=== PATIENT | male | born 1990 | race Hispanic/Latino ===

== ENCOUNTER 2017-08-31 22:59 | Emergency (ER) | payer BC ==
[2017-08-31] MEDS ORDERED: Sodium Chloride 0.9% 1,000 ML IV SCH (23:45)
--- NOTE | 2017-08-31 23:51 | ED PDOC ---
Arrival/HPI - General Chief Complaint: Abdominal Pain Time Seen by Provider: 08/31/17 23:39 Historian: Patient - History of Present Illness Narrative History of Present Illness (Text): 09/01/17 23:51 Jamie Jernigan is a 27 year old male, with no significant past medical history , who presents to the Emergency department complaining of intermittent cramping abdominal discomfort for the past couple of days. Patient notes associated diarrhea. Patient states he took Mylanta without any significant relief. Patient denies nausea, vomiting, coughing, fever, appetite changes, dysuria, back pain, shortness of breath, or any other complaints. Time/Duration: Other Symptom Onset: Gradual Symptom Course: Unchanged, Intermittent Quality: Aching Activities at Onset: Light Context: Home Past Medical History - Provider Review Nursing Documentation Reviewed: Yes - Infectious Disease Hx of Infectious Diseases: None - Psychiatric Hx Substance Use: No - Surgical History Other/Comment: lt arm sx - Anesthesia Hx Anesthesia: Yes Hx Anesthesia Reactions: No Family/Social History - Physician Review Nursing Documentation Reviewed: Yes Family/Social History: Unknown Family HX Smoking Status: Never Smoked Hx Alcohol Use: No Hx Substance Use: No Allergies/Home Meds Allergies/Adverse Reactions: Allergies No Known Allergies Allergy (Verified 08/31/17 23:26) Home Medications: Home Meds Medication Instructions Recorded Confirmed No Known Home Med 08/31/17 08/31/17 Review of Systems - Physician Review All systems were reviewed & negative as marked: Yes - Review of Systems Constitutional: Normal. absent: Fevers Eyes: Normal ENT: Normal Respiratory: Normal. absent: SOB, Cough Cardiovascular: Normal. absent: Chest Pain Gastrointestinal: Abdominal Pain, Diarrhea. absent: Nausea, Vomiting, Appetite Changes Genitourinary Male: Normal. absent: Dysuria, Urinary Output Changes Musculoskeletal: Normal. absent: Back Pain Skin: Normal Neurological: Normal. absent: Headache Endocrine: Normal Hemo/Lymphatic: Normal Psychiatric: Normal Physical Exam Vital Signs Reviewed: Yes Vital Signs Temp Pulse Resp BP Pulse Ox 09/01/17 03:27 72 16 136/75 95 09/01/17 02:39 68 15 139/83 95 08/31/17 23:30 97.8 F 77 16 144/70 94 L Temperature: Afebrile Blood Pressure: Normal Pulse: Regular Respiratory Rate: Normal Appearance: Positive for: Well-Appearing, Non-Toxic, Comfortable Pain Distress: None Mental Status: Positive for: Alert and Oriented X 3 - Systems Exam Head: Present: Atraumatic, Normocephalic Pupils: Present: PERRL Extroacular Muscles: Present: EOMI Conjunctiva: Present: Normal Mouth: Present: Moist Mucous Membranes Neck: Present: Normal Range of Motion Respiratory/Chest: Present: Clear to Auscultation, Good Air Exchange. No: Respiratory Distress, Accessory Muscle Use Cardiovascular: Present: Regular Rate and Rhythm, Normal S1, S2. No: Murmurs Abdomen: No: Tenderness, Distention, Peritoneal Signs Back: Present: Normal Inspection Upper Extremity: Present: Normal Inspection. No: Cyanosis, Edema Lower Extremity: Present: Normal Inspection. No: Edema Neurological: Present: GCS=15, CN II-XII Intact, Speech Normal Skin: Present: Warm, Dry, Normal Color. No: Rashes Psychiatric: Present: Alert, Oriented x 3, Normal Insight, Normal Concentration Medical Decision Making ED Course and Treatment: 08/31/17 23:52 Impression: 27 year old male presents to Emergency department for aching right sided abdominal pain. Plan: -- Abdomen/Pelvis CT scan --Labs --Urinalysis --IV fluids -- Reassess and disposition Progress Notes: 09/01/17 02:25 Abdomen/Pelvis CT shows: FINDINGS: Abdomen pelvis:Liver, gallbladder, spleen, pancreas, both adrenals and both kidneys are normal.Normal caliber aorta.No bowel obstruction or evidence of acute appendicitis. A normal caliber appendix is identified. Unremarkable urinary bladder. No free fluid or free air. IMPRESSION: No acute findings. 09/01/17 03:20 On re-evaluation, patient feels better and is in no acute distress. I have discussed the results and plan with the patient, who expresses understanding. Patient in agreement with plan to be discharged home. Patient is stable for discharge. Patient was instructed to follow up with physician or return if symptoms worsen or new concerning symptoms arise. - Lab Interpretations Lab Results: 09/01/17 00:00 09/01/17 00:00 Lab Results 09/01/17 01:25: Urine Color Yellow, Urine Appearance Clear, Urine pH 6.0, Ur Specific [place] 1.020, Urine Protein Trace H, Urine Glucose (UA) Negative, Urine Ketones Trace H, Urine Blood Negative, Urine Nitrate Negative, Urine Bilirubin Negative, Urine Urobilinogen 0.2, Ur Leukocyte Esterase Negative, Urine RBC 0 - 2, Urine WBC 0 - 2, Ur Epithelial Cells 0 - 2 09/01/17 00:00: WBC 9.8, RBC 4.90, Hgb 14.8, Hct 42.4, MCV 86.5, MCH 30.2, MCHC 34.9, RDW 13.2, Plt Count 294, MPV 9.0 09/01/17 00:00: Sodium 142, Potassium 4.2, Chloride 104, Carbon Dioxide 26, Anion Gap 15, BUN 15, Creatinine 1.0, Est GFR ( Amer) > 60, Est GFR (Non- Af Amer) > 60, Random Glucose 83, Calcium 9.4, Total Bilirubin 0.2, AST 38, ALT 39, Alkaline Phosphatase 78, Total Protein 7.5, Albumin 4.2, Globulin 3.3, Albumin/Globulin Ratio 1.3, Lipase 42 I have reviewed the lab results: Yes - RAD Interpretation Radiology Orders: 08/31/17 23:52 ABD & PELVIS IV CONTRAST ONLY [CT] Stat Forest Manager: Radiologist - Medication Orders Current Medication Orders: Discontinued Medications Sodium Chloride (Sodium Chloride 0.9%) 1,000 mls @ 100 mls/hr IV .Q10H TYRELL Last Admin: 09/01/17 00:09 Dose: 100 mls/hr eMAR Start Stop Document 09/01/17 00:09 CNR (Rec: 09/01/17 00:09 CNR [id number]) Intravenous Solution Start Date 09/01/17 Start Time 00:09 Ketorolac Tromethamine (Toradol) 30 mg IVP ONCE ONE Stop: 08/31/17 23:54 Last Admin: 09/01/17 00:09 Dose: 30 mg MAR Pain Assessment Document 09/01/17 00:09 CNR (Rec: 09/01/17 00:10 CNR [id number]) Pain Reassessment Is this a pain reassessment? No IVP Administration Document 09/01/17 00:09 CNR (Rec: 09/01/17 00:10 CNR [id number]) Charges for Administration # of IVP Administrations 1 - Scribe Statement The provider has reviewed the documentation as recorded by the Scribe Ana Gomez, under the training of Veronica Maynard. All medical record entries made by the Scribe were at my direction and personally dictated by me. I have reviewed the chart and agree that the record accurately reflects my personal performance of the history, physical exam, medical decision making, and the department course for this patient. I have also personally directed, reviewed, and agree with the discharge instructions and disposition. Disposition/Present on Arrival - Present on Arrival Any Indicators Present on Arrival: No History of DVT/PE: No History of Uncontrolled Diabetes: No Urinary Catheter: No History of Decub. Ulcer: No History Surgical Site Infection Following: None - Disposition Have Diagnosis and Disposition been Completed?: Yes Diagnosis: Gastroenteritis Disposition: HOME/ ROUTINE Disposition Time: 03:18 Patient Plan: Discharge Condition: GOOD Discharge Instructions (ExitCare): Gastroenteritis (ED) Additional Instructions: Maintain proper diet/drink plenty of liquids/follow up with your doctor Referrals: Beena Mott MD [Primary Care Provider] - Follow up with primary Forms: [facility] (Yoruba), WORK NOTE
[2017-09-01 00:06] VITALS: TEMP 97.8
[2017-09-01 00:12] LABS: HEMOGLOBIN 14.8 g/dL (14.0-18.0); MEAN CELL VOLUME 86.5 fl (80.0-105.0); MEAN CORPUSCULAR HEMOGLOBIN 30.2 pg (25.0-35.0); MEAN CORPUSCULAR HGB CONC 34.9 g/dl (31.0-37.0); RBC 4.9 10^6/uL (3.5-6.1); RED CELL DISTRIBUTION WIDTH 13.2 % (11.5-14.5); WHITE BLOOD COUNT 9.8 10^3/ul (4.5-11.0)
[2017-09-01 00:24] LABS: ALB/GLOB RATIO 1.3 (1.1-1.8); ALBUMIN 4.2 g/dL (3.0-4.8); ALT/SGPT 39 U/L (7-56); AST/SGOT 38 U/L (17-59); BLOOD UREA NITROGEN 15 mg/dL (7-21); CALCIUM 9.4 mg/dL (8.4-10.5); GFR AFRICAN-AMERICAN > 60; GFR NON-AFRICAN AMERICAN > 60; LIPASE 42 U/L (23-300)
[2017-09-01] MEDS ORDERED: Iohexol 350 MG/100 ML VIAL ONE (00:33)
[2017-09-01 01:44] LABS: URINE APPEARANCE CLEAR (CLEAR); URINE BILIRUBIN NEGATIVE (NEGATIVE); URINE BLOOD NEGATIVE (NEGATIVE); URINE COLOR YELLOW (YELLOW); URINE GLUCOSE (UA) NEGATIVE (NEGATIVE); URINE LEUKOCYTE ESTERASE NEGATIVE Leu/uL (NEGATIVE); URINE PROTEIN TRACE mg/dL (<30 mg/dL); URINE UROBILINOGEN 0.2 E.U./dL (<1 E.U./dL)
[2017-09-01 02:06] LABS: URINE EPITHELIAL CELLS 0 - 2 /hpf (0-5); URINE RBC 0 - 2 /hpf (0-2); URINE WBC 0 - 2 /hpf (0-6)
[2017-09-01 02:40] VITALS: O2SAT 95
[2017-09-01 03:28] VITALS: BP 136/75; PULSE 72; RESP 16
--- NOTE | 2017-09-01 08:59 | CT ---
Date of service: 09/01/2017 PROCEDURE: CT Abdomen and Pelvis with contrast HISTORY: abdominal pain COMPARISON: None. TECHNIQUE: Contrast dose: 100 cc of Omni 350 Radiation dose: Total exam DLP = 1204 mGy-cm. This CT exam was performed using one or more of the following dose reduction techniques: Automated exposure control, adjustment of the mA and/or kV according to patient size, and/or use of iterative reconstruction technique. FINDINGS: LOWER THORAX: Unremarkable. LIVER: Unremarkable. No gross lesion or ductal dilatation. GALLBLADDER AND BILE DUCTS: Unremarkable. PANCREAS: Unremarkable. No gross lesion or ductal dilatation. SPLEEN: Unremarkable. ADRENALS: Unremarkable. No mass. KIDNEYS AND URETERS: Unremarkable. No hydronephrosis. No solid mass. VASCULATURE: Unremarkable. No aortic aneurysm. BOWEL: Unremarkable. No obstruction. No gross mural thickening. APPENDIX: Normal appendix. PERITONEUM: Unremarkable. No free fluid. No free air. LYMPH NODES: Unremarkable. No enlarged lymph nodes. BLADDER: Unremarkable. REPRODUCTIVE: Unremarkable. BONES: No acute fracture. OTHER FINDINGS: The report concurs with the preliminary [facility] report IMPRESSION: No acute findings
== END 2017-09-01 03:27 | disposition home or self-care (01) ==
LOC: ED 22:59
DX: K52.9 Noninfective gastroenteritis and colitis, unspecified (principal)
CPT/HCPCS: 74177; 80053; 81001; 83690; 85027; 96374; 99283; J1885; J7030; Q9967